=== PATIENT | male | born 1965 | race Asian ===

== ENCOUNTER 2017-02-02 11:12 | Emergency (ER) | payer OTHER ==
[2017-02-02 11:18] VITALS: BP 132/82; PULSE 69; RESP 16; TEMP 97.7; O2SAT 95
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
== END 2017-02-02 13:20 | disposition home or self-care (01) ==
PROC: 069Y0ZZ Drainage of Lower Vein, Open Approach (ICD-10-PCS; principal; 2017-02-02)
DX: K64.5 Perianal venous thrombosis (principal)

== ENCOUNTER 2017-03-15 11:00 | Emergency (ER) | payer OTHER ==
[2017-03-15 11:08] VITALS: BP 121/75; PULSE 56; RESP 16; TEMP 97.7; O2SAT 97
[2017-03-15] MEDS ORDERED: LET GEL TOPICAL 1 EA SYR TP ONE (11:28)
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
== END 2017-03-15 12:46 | disposition home or self-care (01) ==
DX: S90.411A Abrasion, right great toe, initial encounter (principal); S90.415A Abrasion, left lesser toe(s), initial encounter; S90.414A Abrasion, right lesser toe(s), initial encounter; S80.212A Abrasion, left knee, initial encounter; S80.211A Abrasion, right knee, initial encounter; S50.812A Abrasion of left forearm, initial encounter; S50.811A Abrasion of right forearm, initial encounter; V18.0XXA Pedal cycle driver injured in noncollision transport accident in nontraffic accident, initial encounter; Y92.410 Unspecified street and highway as the place of occurrence of the external cause; Y99.8 Other external cause status; Y93.55 Activity, bike riding